=== PATIENT | female | born 1960 | race Caucasian/White ===

== ENCOUNTER 2017-10-21 09:36 | Day surgery (SDC) | payer OTHER ==
[2017-10-21] MEDS ORDERED: LIDOCAINE 2% JELLY 5 ML (11:55)
[2017-10-21] MEDS ORDERED: MIDAZOLAM 1 MG/ML 2 ML INJ ×3 (12:20)
[2017-10-21] MEDS ORDERED: FENTAnyl 50 MCG/ML VIAL (12:20)
== END 2017-10-21 15:46 | disposition home or self-care (01) ==
LOC: GIL 09:36
DX: Z12.11 Encounter for screening for malignant neoplasm of colon (principal); K64.4 Residual hemorrhoidal skin tags; K64.8 Other hemorrhoids; K57.90 Diverticulosis of intestine, part unspecified, without perforation or abscess without bleeding
CPT/HCPCS: 45378